=== PATIENT | male | born 1995 | race Hispanic/Latino ===

== ENCOUNTER 2024-03-13 20:12 | Emergency (ER) | payer SELFPAY ==
--- NOTE | 2024-03-13 20:45 | ER ---
Nurse's Notes [facility] Name: Benoit Mackey Age: 28 yrs Sex: Male : 1995 Arrival Date: 03/13/2024 Time: 20:12 Bed IW1 Private MD: Diagnosis: Localized edema Presentation: 03/13 20:23 Chief complaint: Patient states: swelling to the penis and scrotum that started today. cp4 Coronavirus screen: Client denies travel out of the [place] in the last 14 days. At this time, the client does not indicate any symptoms associated with coronavirus-19. Ebola Screen: Patient negative for fever greater than or equal to 101.5 degrees Fahrenheit, and additional compatible Ebola Virus Disease symptoms Patient denies exposure to infectious person. Patient denies travel to an Ebola-affected area in the 21 days before illness onset. No symptoms or risks identified at this time. Initial Sepsis Screen: Does the patient meet any 2 criteria? HR > 90 bpm. No. Patient's initial sepsis screen is negative. Does the patient have a suspected source of infection? No. Patient's initial sepsis screen is negative. Risk Assessment: Do you want to hurt yourself or someone else? Patient reports no desire to harm self or others. Onset of symptoms was March 12, 2024. 20:23 Method Of Arrival: Ambulatory 4 20:23 Acuity: JL 3 cp4 Triage Assessment: 20:25 General: Appears uncomfortable, Behavior is calm, cooperative, appropriate for age. cp4 Pain: Denies pain. GI: No signs and/or symptoms were reported involving the gastrointestinal system. : Reports swollen scrotum and penis. Historical: - Allergies: 20:25 No Known Allergies; cp4 - Immunization history:: Adult Immunizations up to date. - Infectious Disease History:: Denies. - Social history:: Smoking status: Patient denies any tobacco usage or history of. Screenin:[facility] ED Fall Risk Assessment (Adult) History of falling in the last 3 months, cp4 including since admission No falls in past 3 months (0 pts) Confusion or Disorientation No (0 pts) Intoxicated or Sedated No (0 pts) Impaired Gait No (0 pts) Mobility Assist Device Used No (0 pt) Altered Elimination No (0 pt) Score/Fall Risk Level 0 - 2 = Low Risk Oriented to surroundings, Maintained a safe environment, Assessed \T\ reinforced patient's understanding of fall precautions, Hourly rounding (assess needs \T\ fall precautionary measures) done. Abuse screen: Denies threats or abuse. Nutritional screening: No deficits noted. Tuberculosis screening: No symptoms or risk factors identified. Assessment: 20:31 Reassessment: Patient report moroccan butt life on Wednesday and has used hydrocortisone cp4 cream on his penis for the swelling. 20:43 General: Appears uncomfortable, Behavior is calm, cooperative, appropriate for age. cp4 Pain: Denies pain. Neuro: Level of Consciousness is awake, alert, obeys commands, Oriented to person, place, time, situation. Cardiovascular: Patient's skin is warm and dry. Respiratory: Airway is patent Respiratory effort is even, unlabored. GI: Bowel sounds present X 4 quads. Abd is soft and non tender X 4 quads. : Reports swelling to the penis. Vital Signs: 20:23 BP 175 / 78; Pulse 120; Resp 17; Temp 98.6; Weight 90.72 kg; Height 5 ft. 7 in. ; Pain cp4 0/10; 20:23 Body Mass Index 31.32 (90.72 kg, 170.18 cm) cp4 20:23 Pain Scale: Adult cp4 ED Course: 20:14 Patient arrived in ED. mr 20:15 Sukumar Johnson MD is Attending Physician. ec2 20:25 Triage completed. cp4 20:25 Arm band placed on right wrist. Patient placed in waiting room. cp4 20:42 Jacklyn Manuel is Primary Nurse. cp4 20:43 Bed in low position. Call light in reach. Side rails up X 1. Provided Education on: cp4 penile swelling. 20:43 No provider procedures requiring assistance completed. Patient did not have IV access cp4 during this emergency room visit. Administered Medications: No medications were administered Medication: 20:43 VIS not applicable for this client. cp4 Outcome: 20:45 Discharge ordered by . ec2 21:01 Discharged to home ambulatory, cp4 21:01 Condition: stable 21:01 Discharge instructions given to patient, Instructed on discharge instructions, follow up and referral plans. Demonstrated understanding of instructions, follow-up care, 21:01 Patient left the ED. cp4 Signatures: Rosamaria Shoemaker Reg Reg mr Sukumar Johnson MD MD ec2 Jacklyn Manuel cp4
--- NOTE | 2024-03-13 20:45 | EDPHYS ---
Physician Documentation [facility] Name: Benoit Mackey Age: 28 yrs Sex: Male : 1995 Arrival Date: 03/13/2024 Time: 20:12 Bed IW1 Private MD: ED Physician Sukumar Johnson HPI: 03/13 20:45 This 28 yrs old Male presents to ER via Ambulatory with complaints of Penile ec2 Problem. 20:45 Patient arrives today for scrotal swelling and edema. Patient recently had liposuction ec2 and a Finnish butt lift approximately 1 week ago. No fevers or chills, no nausea or vomiting, no penile discharge. Patient has swelling to the abdomen as well as the testicles. Denies difficulty breathing. Patient reports no pain in the penis or testicles either.. Historical: - Allergies: 20:25 No Known Allergies; cp4 - Immunization history:: Adult Immunizations up to date. - Infectious Disease History:: Denies. - Social history:: Smoking status: Patient denies any tobacco usage or history of. ROS: 20:45 Constitutional: as per hpi ec2 Exam: 20:45 Constitutional: GEN: NAD Head: atraumatic Eyes: EOMI Ears: External ears are ec2 normal. CV: regular rate LUNGS: no respiratory distress ABD: non-distended. : Performed under nursing supervision, JANNIE Deutsch. Patient with localized penile edema, ecchymosis extending from the abdomen into the penis and surrounding suprapubic region. No crepitus, no warmth, no discharge, no erythema. SKIN: no evidence of rashes MSK: no evidence of trauma Vital Signs: 20:23 BP 175 / 78; Pulse 120; Resp 17; Temp 98.6; Weight 90.72 kg; Height 5 ft. 7 in. ; Pain cp4 0/10; 20:23 Body Mass Index 31.32 (90.72 kg, 170.18 cm) cp4 20:23 Pain Scale: Adult cp4 MDM: 20:26 Patient medically screened. ec2 20:45 Data reviewed: vital signs. ED course: Patient arrives today for localized penile ec2 swelling. Examination remarkable for findings as above. Suspect dependent edema. Doubt cellulitis or Carmelita's gangrene. Patient already on Augmentin as well. Additionally patient has been urinating without issue. I considered obtaining lab work however patient with such localized edema that is similar to the ecchymosis that surrounding in the abdomen at the postsurgical site this appears to be dependent. I instructed him on jockstrap, ice to the area and to return if he is unable to urinate.. Administered Medications: No medications were administered Disposition Summary: 03/13/24 20:45 Discharge Ordered Notes: You should buy a jock strap to help support your testicles. Location: Home ec2 Condition: Stable ec2 Diagnosis - Localized edema ec2 Followup: ec2 - With: Private Physician - When: - Reason: Re-evaluation by your physician Discharge Instructions: - Discharge Summary Sheet ec2 - Edema, [id number] ec2 Forms: - Medication Reconciliation Form ec2 - Antibiotic Education ec2 - Prescription Opioid Use ec2 - Patient Portal Instructions ec2 - Leadership Thank You Letter ec2 Signatures: Sukumar Johnson MD MD ec2 Jacklyn Manuel cp4
[2024-03-13 21:39] VITALS: BP 175/78; TEMP 98.6
== END 2024-03-13 21:01 | disposition home or self-care (01) ==
LOC: ER 20:12
DX: R60.0 Localized edema (principal); Z98.890 Other specified postprocedural states
CPT/HCPCS: 99282